=== PATIENT | male | born 1940 | race Caucasian/White ===

== ENCOUNTER 2024-08-22 05:36 | Day surgery (SDC) | payer MEDICARE ==
[2024-08-21 12:12] VITALS: BMI 19.3
[2024-08-22] MEDS ORDERED: LIDOCAINE 1% (10MG/ML) FOR IV START INTRADERMA PRN (06:01)
[2024-08-22 06:24] VITALS: TEMP 98.5
[2024-08-22 06:40] VITALS: BP 143/87; PULSE 98
[2024-08-22] MEDS: IV FLUID CONTINUATION 1,000 ML IV ONE ×2 (06:42)
[2024-08-22] MEDS: LACTATED RINGERS 1,000 ML IV SCH (06:43)
[2024-08-22 07:21] VITALS: RESP 22
--- NOTE | 2024-08-23 22:26 | P.PN ---
Subjective Progress Note Date: 08/23/24 On 08/23/2024, the patient is feeling well. No new complaints. The known case of pulmonary fibrosis has been followed up by Dr. LEEANNE Florian in outpatient basis. He is chronically hypoxic and he has exertional oxygen desaturation the patient will have home O2 arranged for this patient. Otherwise, the patient is cleared for discharge from pulmonary standpoint. GI workup to be done at a later stage. Objective - Vital Signs Vital signs: Vital Signs Temp 98.5 F 08/22/24 06:23 Pulse 98 08/22/24 06:39 Resp 22 08/22/24 07:00 BP 143/87 08/22/24 06:39 Pulse Ox 96 08/22/24 07:00 FiO2 - Exam The patient appeared well nourished and normally developed. Vital signs as documented. Head exam is unremarkable. No scleral icterus or corneal arcus noted. Neck is without jugular venous distension, thyromegaly, or carotid bruits. Carotid upstrokes are brisk bilaterally. Lungs are diminished and has coarse crackles in the lung bases Cardiac exam reveals the PMI to be normally sized and situated. Rhythm is regular. First and second heart sounds normal. No murmurs, rubs or gallops. Abdominal exam reveals normal bowel sounds, no masses, no organomegaly and no aortic enlargement. Extremities are nonedematous and both femoral and pedal pulses are normal. Examination of the skin revealed no evidence of significant rashes, suspicious appearing nevi or other concerning lesions. Neurologically, the patient is awake and alert and the patient does not have any focal neurological deficit. Cranial nerves are essentially intact. 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 He should be able to qualify for home O2. No need for bronchodilators No need for steroids Cough medication to suppress his chronic cough which is essentially due to IPF No contraindication for colonoscopy as long as the patient supplemental oxygen and close monitoring of his respiratory status Outpatient follow-up with his glaze wiper. Consider antifibrotic treatment if the patient is having progressive worsening in his lung function over the years. The patient has been followed up by Dr. LEEANNE Florian and should follow-up with him in the future for further treatment of his pulmonary fibrosis. Will sign off the case, cleared for discharge from pulmonary standpoint
== END 2024-08-22 07:10 | disposition other institution (70) ==
LOC: ORWHC2ENDO 05:36
PROVIDERS: ATTEND Internal Medicine Gastroenterology
DX: R63.4 Abnormal weight loss (principal); R19.4 Change in bowel habit; Z53.9 Procedure and treatment not carried out, unspecified reason

== ENCOUNTER 2024-08-22 07:15 | Observation (INO) | payer MEDICARE ==
--- NOTE | 2024-08-22 07:47 | ED ---
General Adult HPI - General Chief complaint: Shortness of Breath Stated complaint: Wheezing Time Seen by Provider: 08/22/24 07:17 Source: patient, RN/MD, RN notes reviewed, old records reviewed Limitations: no limitations - History of Present Illness Initial comments: 84-year-old male sent down from preop holding with hypoxia. Patient was 77% on room air. Patient denied chest pain. Denied fever. Denied significant cough. States he always is somewhat short of breath. History of COPD. Patient was prepped for a upper GI endoscopy and colonoscopy. Patient himself has no specific complaints. - Related Data Home Medications Medication Instructions Recorded Confirmed Albuterol Nebulized [Ventolin 2.5 mg INHALATION Q6H PRN 08/21/24 08/22/24 Nebulized] Budesonide 0.5 mg INHALATION BID 08/21/24 08/22/24 Montelukast Sodium 10 mg PO HS 08/21/24 08/22/24 Mv-Mn/Om3/Dha/Epa/Fish/Lut/Neo 1 each PO DAILY 08/21/24 08/22/24 [Ocuvite Adult 50 Plus Softgel] Simvastatin 40 mg PO HS 08/21/24 08/22/24 polyethylene glycoL 3350 [Miralax] 17 gm PO DAILY 08/21/24 08/22/24 Allergies Allergy/AdvReac Type Severity Reaction Status Date / Time No Known Allergies Allergy Verified 08/22/24 07:24 Review of Systems ROS Statement: Those systems with pertinent positive or pertinent negative responses have been documented in the HPI. ROS Other: All systems not noted in ROS Statement are negative. Past Medical History Past Medical History: Cancer, Eye Disorder, Hearing Disorder / Deafness, Hyperlipidemia, Pneumonia Additional Past Medical History / Comment(s): Seasonal allergies. Non Hodgkins in remission X2 now. Bleeding behind right retina 3 yrs ago, gets shots every 3 months. Constipation. Hard of hearing. Hx Pneumonia just over a month ago. History of Any Multi-Drug Resistant Organisms: None Reported Additional Past Surgical History / Comment(s): Had stomach surgery as an , left ankle surgery X2, colonoscopy and EGD. Past Anesthesia/Blood Transfusion Reactions: No Reported Reaction Past Psychological History: Anxiety Smoking Status: Former smoker - Past Family History Father Family Medical History: Cancer Additional Family Medical History / Comment(s): Stomach cancer. Mother Family Medical History: Cancer Additional Family Medical History / Comment(s): Stomach cancer. Sister(s) Family Medical History: Cancer, Eye Disorder Additional Family Medical History / Comment(s): Breast cancer, macular degeneration. General Exam Limitations: no limitations General appearance: alert, in no apparent distress Head exam: Present: atraumatic, normocephalic Eye exam: Present: normal appearance, PERRL ENT exam: Present: normal exam Neck exam: Present: normal inspection. Absent: tenderness, meningismus Respiratory exam: Present: wheezes, decreased breath sounds Cardiovascular Exam: Present: regular rate, normal rhythm GI/Abdominal exam: Present: soft. Absent: distended, tenderness, guarding Extremities exam: Present: normal capillary refill. Absent: pedal edema, calf tenderness Neurological exam: Present: alert, oriented X3, CN II-XII intact. Absent: motor sensory deficit Psychiatric exam: Present: normal affect, normal mood Skin exam: Present: warm, dry, intact. Absent: cyanosis, diaphoretic Course Vital Signs 08/22/24 08/22/24 08/22/24 07:20 07:58 08:10 Temperature 98.4 F Pulse Rate 88 84 88 Respiratory 24 Rate Blood Pressure 125/63 O2 Sat by Pulse 99 Oximetry 08/22/24 08/22/24 08:21 09:23 Temperature Pulse Rate 90 81 Respiratory 18 Rate Blood Pressure 116/62 O2 Sat by Pulse 96 Oximetry Medical Decision Making - Medical Decision Making Was pt. sent in by a medical professional or institution (, PA, DOPE HOUSE OPERATOR HELPER, urgent care, hospital, or alf...) When possible be specific @ -No Did you speak to anyone other than the patient for history (EMS, parent, family, police, friend...)? What history was obtained from this source @ -No Did you review nursing and triage notes (agree or disagree)? Why? @ -I reviewed and agree with nursing and triage notes Were old charts reviewed (outside hosp., previous admission, EMS record, old EKG, old radiological studies, urgent care reports/EKG's, alf records)? Report findings @ -No old charts were reviewed Differential Dyspnea: Coronary syndrome, arrhythmia, tamponade, asthma, COPD, pulmonary embolism, pneumonia, pneumothorax, pulmonary effusion, anaphylaxis, diabetic ketoacidosis, flailed chest, pulmonary contusion, diaphragmatic rupture, anemia, neuromuscular, this is not meant to be an all-inclusive list. EKG interpreted by me (3pts min.). @Sinus rhythm with PVC rate of 78, NV interval 157, QRS duration 89, QTc [address] segment elevation. X-rays interpreted by me (1pt min.). @ -[Chest x-ray showing diffuse pulmonary fibrosis CT interpreted by me (1pt min.). @ -None done U/S interpreted by me (1pt. min.). @ -None done What testing was considered but not performed or refused? (CT, X-rays, U/S, labs)? Why? @ -None What meds were considered but not given or refused? Why? @ -None Did you discuss the management of the patient with other professionals (professionals i.e. , PA, DOPE HOUSE OPERATOR HELPER, lab, RT, psych nurse, sexual assault social worker, physicist cryogenics, teacher, operations officer afloat, lining caser)? Give summary @Daniel covering for [facility] Was smoking cessation discussed for >3mins.? @ -No Was critical care preformed (if so, how long)? @ -Yes, 35 minutes Were there social determinants of health that impacted care today? How? (Homelessness, low income, unemployed, alcoholism, drug addiction, transportation, low edu. Level, literacy, decrease access to med. care, fpc, rehab)? @ -No Was there de-escalation of care discussed even if they declined (Discuss DNR or withdrawal of care, Hospice)? DNR status @ -No What co-morbidities impacted this encounter? (DM, HTN, Smoking, COPD, CAD, Cancer, CVA, ARF, Chemo, Hep., AIDS, mental health diagnosis, sleep apnea, morbid obesity)? @ -COPD Was patient admitted / discharged? Hospital course, mention meds given and route, prescriptions, significant lab abnormalities, going to OR and other pertinent info. @ - 84-year-old presents for evaluation of dyspnea and hypoxia history of COPD. Chest x-ray shows pulmonary fibrosis. Laboratory test including CBC, CMP, troponin, BNP is unremarkable. Patient will be admitted for treatment of COPD exacerbation and pulmonary fibrosis. Admitted to [facility] with pulmonology on consult. Undiagnosed new problem with uncertain prognosis? @ -No Drug Therapy requiring intensive monitoring for toxicity (Heparin, Nitro, Insulin, Cardizem)? @ -No Were any procedures done? @ -No Diagnosis/symptom? @COPD, pulmonary fibrosis Acute, or Chronic, or Acute on Chronic? @ -Acute on chronic Uncomplicated (without systemic symptoms) or Complicated (systemic symptoms)? @ -Complicated Side effects of treatment? @ -No Exacerbation, Progression, or Severe Exacerbation? @ -No Poses a threat to life or bodily function? How? (Chest pain, [place], [place], pneumonia, PE, COPD, DKA, ARF, appy, cholecystitis, CVA, Diverticulitis, Homicidal, Suici torie, threat to staff... and all critical care pts) @ -Yes, respiratory failure - Lab Data Result diagrams: 08/22/24 08:02 08/22/24 08:02 Lab Results 08/22/24 08/22/24 08/22/24 Range/Units 08:02 08:02 08:02 WBC 10.41 H (4.50-10.00) 10*3/uL RBC 4.29 L (4.40-5.60) 10*6/uL Hgb 11.1 L (13.0-17.0) g/dL Hct 35.8 L (39.6-50.0) % MCV 83.4 (80.0-97.0) fL MCH 25.9 L (27.0-32.0) pg MCHC 31.0 L (32.0-37.0) g/dL Plt Count 265 (140-440) 10*3/uL MPV 9.2 L (9.5-12.2) fL Immature Gran % (Auto) 0.8 % Neutrophils % 89.7 % Lymphocytes % 2.7 % Monocytes % 6.1 % Eosinophils % 0.3 % Basophils % 0.4 % Immature Gran # 0.08 H (0.00-0.04) 10*3/uL Neutrophils # 9.35 H (1.80-7.70) 10*3/uL Lymphocytes # 0.28 L (0.90-5.00) 10*3/uL Monocytes # 0.63 (0.20-1.00) 10*3/uL Eosinophils # 0.03 L (0.04-0.35) 10*3/uL Basophils # 0.04 (0.00-0.10) 10*3/uL PT 12.2 (10.0-12.5) sec INR 1.1 (<1.2) APTT 28.8 (22.0-30.0) sec Sodium 134 L (137-145) mmol/L Potassium 4.0 (3.5-5.1) mmol/L Chloride 100 (98-107) mmol/L Carbon Dioxide 25 (22-30) mmol/L Anion Gap 9 mmol/L BUN 11 (9-20) mg/dL Creatinine 0.60 L (0.66-1.25) mg/dL Est GFR (CKD-EPI)AfAm >90 (>60 ml/min/1.73 sqM) Est GFR (CKD-EPI)NonAf >90 (>60 ml/min/1.73 sqM) Glucose 89 (74-99) mg/dL Plasma Lactic Acid Bebeto (0.7-2.0) mmol/L Calcium 8.6 (8.4-10.2) mg/dL Magnesium 1.8 (1.6-2.3) mg/dL Total Bilirubin 0.6 (0.2-1.3) mg/dL AST 21 (17-59) U/L ALT 10 (4-49) U/L Alkaline Phosphatase 122 (38-126) U/L Troponin I (0.000-0.034) ng/mL NT-Pro-B Natriuret Pep 464 pg/mL Total Protein 6.0 L (6.3-8.2) g/dL Albumin 3.0 L (3.5-5.0) g/dL 08/22/24 08/22/24 Range/Units 08:02 08:02 WBC (4.50-10.00) 10*3/uL RBC (4.40-5.60) 10*6/uL Hgb (13.0-17.0) g/dL Hct (39.6-50.0) % MCV (80.0-97.0) fL MCH (27.0-32.0) pg MCHC (32.0-37.0) g/dL Plt Count (140-440) 10*3/uL MPV (9.5-12.2) fL Immature Gran % (Auto) % Neutrophils % % Lymphocytes % % Monocytes % % Eosinophils % % Basophils % % Immature Gran # (0.00-0.04) 10*3/uL Neutrophils # (1.80-7.70) 10*3/uL Lymphocytes # (0.90-5.00) 10*3/uL Monocytes # (0.20-1.00) 10*3/uL Eosinophils # (0.04-0.35) 10*3/uL Basophils # (0.00-0.10) 10*3/uL PT (10.0-12.5) sec INR (<1.2) APTT (22.0-30.0) sec Sodium (137-145) mmol/L Potassium (3.5-5.1) mmol/L Chloride (98-107) mmol/L Carbon Dioxide (22-30) mmol/L Anion Gap mmol/L BUN (9-20) mg/dL Creatinine (0.66-1.25) mg/dL Est GFR (CKD-EPI)AfAm (>60 ml/min/1.73 sqM) Est GFR (CKD-EPI)NonAf (>60 ml/min/1.73 sqM) Glucose (74-99) mg/dL Plasma Lactic Acid Bebeto 1.6 (0.7-2.0) mmol/L Calcium (8.4-10.2) mg/dL Magnesium (1.6-2.3) mg/dL Total Bilirubin (0.2-1.3) mg/dL AST (17-59) U/L ALT (4-49) U/L Alkaline Phosphatase (38-126) U/L Troponin I 0.013 (0.000-0.034) ng/mL NT-Pro-B Natriuret Pep pg/mL Total Protein (6.3-8.2) g/dL Albumin (3.5-5.0) g/dL Critical Care Time Critical Care Time: Yes Total Critical Care Time: 35 Disposition Clinical Impression: Acute exacerbation of chronic obstructive pulmonary disease Disposition: ADMITTED IP TO THIS HOSP Condition: Stable Is patient prescribed a controlled substance at d/c from ED?: No Referrals: Tyree Snider MD [Primary Care Provider] - 1-2 days Time of Disposition: 10:19
[2024-08-22] MEDS: SODIUM CHLORIDE 0.9% 500 ML 500 ML IV ONE (07:52)
[2024-08-22] MEDS: IPRATROPIUM 0.5 MG/2.5 ML NEBU INHALATION STA (07:58)
[2024-08-22] MEDS: ALBUTEROL NEBULIZED 2.5 MG/3 ML INHALATION STA (07:58)
[2024-08-22 08:08] LABS: Basophils # (A) 0.04 10*3/uL (0.00-0.10); Basophils % (A) 0.4 %; Eosinophils # (A) 0.03 10*3/uL (0.04-0.35); Eosinophils % (A) 0.3 %; HCT 35.8 % (39.6-50.0); HGB 11.1 g/dL (13.0-17.0); Lymphocytes # (A) 0.28 10*3/uL (0.90-5.00); Lymphocytes % (A) 2.7 %; MCH 25.9 pg (27.0-32.0); MCV 83.4 fL (80.0-97.0); Mean Platelet Volume 9.2 fL (9.5-12.2); Monocytes # (A) 0.63 10*3/uL (0.20-1.00); Monocytes % (A) 6.1 %; Neutrophils # (A) 9.35 10*3/uL (1.80-7.70); Neutrophils % (A) 89.7 %; Platelet Count 265 10*3/uL (140-440); RBC 4.29 10*6/uL (4.40-5.60); RDW 15.9 % (11.5-14.5); WBC 10.41 10*3/uL (4.50-10.00)
[2024-08-22 08:18] LABS: INR 1.1 (<1.2); Partial Thromboplastin Time 28.8 sec (22.0-30.0); Prothrombin Time 12.2 sec (10.0-12.5)
[2024-08-22 08:26] LABS: ALT 10 U/L (4-49); AST 21 U/L (17-59); African American GFR (CKD) >90 (>60 ml/min/1.73 sqM); Alkaline Phosphatase 122 U/L (38-126); Anion Gap 9 mmol/L; Blood Urea Nitrogen 11 mg/dL (9-20); Calcium 8.6 mg/dL (8.4-10.2); Carbon Dioxide 25 mmol/L (22-30); Chloride 100 mmol/L (98-107); Glucose 89 mg/dL (74-99); Magnesium 1.8 mg/dL (1.6-2.3); Non-African American GFR(CKD) >90 (>60 ml/min/1.73 sqM); Sodium 134 mmol/L (137-145); Total Bilirubin 0.6 mg/dL (0.2-1.3)
[2024-08-22 08:35] LABS: NT-Pro-B-Type Natriuretic Pept 464 pg/mL
[2024-08-22] MEDS: methylPREDNISolone SOD SUCCI 125 MG/2 ML VIAL IV STA (09:12)
--- NOTE | 2024-08-22 09:13 | XR ---
EXAMINATION TYPE: XR chest 2V DATE OF EXAM: 08/22/2024 8:56 AM COMPARISON: None available at this location CLINICAL INDICATION: Male, 84 years old with history of difficulty breathing, TECHNIQUE: XR chest 2V view(s) obtained. FINDINGS: The heart size is normal. The pulmonary vasculature is prominent. Diffuse increased lung markings are present. Findings can be compatible with pulmonary edema superimp osed on pulmonary fibrosis. Clinical correlation recommended.. IMPRESSION: 1. Findings suggestive for pulmonary edema superimposed on pulmonary fibrosis. Clinical correlation r ecommended. Follow-up can be performed. [facility], , 08/22/2024 9:11 AM
[2024-08-22] MEDS ORDERED: IPRATROPIUM-ALBUTEROL 3 ML NEB INHALATION PRN (10:16)
[2024-08-22] MEDS ORDERED: NALOXONE 0.4 MG/ML 1 ML VIAL IVP PRN (10:16)
--- NOTE | 2024-08-22 11:26 | P.HPIM ---
History of Present Illness H&P Date: 08/22/24 History of Presenting Illness: Patient is a pleasant 84-year-old male with a past medical history of non- Hodgkin's lymphoma currently in remission, hyperlipidemia, and COPD. Patient was initially scheduled for outpatient EGD and colonoscopy but was found to be hypoxic with SpO2 of 77% on room air, he was placed on oxygen and brought down to the emergency department for evaluation. Upon arrival to the emergency department patient underwent evaluation. Vital signs upon arrival show blood pressure 125/63, heart rate 88, respiratory rate 24, temp 98.4 F, and SpO2 of 99% on 2 L. EKG was completed showing normal sinus rhythm at 78 bpm with occasional PVCs. Chest x-ray showing concerns of pulmonary edema superimposed on pulmonary fibrosis. Labs completed and reviewed. CBC showing leukocytosis with WBC count of 10.41, hemoglobin of 11.1, hematocrit 35.8, MCH of 25.9, and MCHC of 31.0 with MPV of 9.2. Coagulation profile normal findings. BMP showing sodium 134 and blood glucose of 89. Lactic acid normal findings at 1.6. Calcium 8.6. Magnesium 1.8. Liver profile unremarkable. Troponin 0.013 and proBNP of 464. Patient denied feeling short of breath, cough or congestion, chest pain, or any other complaints at this time. Patient does report he has been experiencing progressively worsening shortness of breath over the past year and found simple activities like cutting his grass or taking out the trash to result in worsening shortness of breath and need to take a rest when he previously did not. He denies having any fevers, chills, diaphoresis, dizziness, lightheadedness, chest pain, palpitations, abdominal pain, nausea, vomiting, or experiencing any numbness/tingling/weakness/swelling in his extremities. Patient was admitted under services with consultation to pul monology. Review of systems: Pertinent positives and negatives as discussed in HPI, a complete review of systems was performed and all other systems are negative. Physical exam: Vital signs reviewed and stable. General: Nontoxic, no distress and appears stated age. Derm: Skin warm and dry, normal coloration for ethnicity. Head: Atraumatic, normocephalic and symmetric. Eyes: EOM's intact, no lid lag, and anicteric sclera Mouth: no lip lesions, mucus membranes moist Cardiovascular: regular rate and rhythm with normal S1S2, no murmur, positive posterior tibial pulses bilaterally, and cap refill < 2 seconds. Lungs: Respirations even, regular, and unlabored on supplemental oxygen. Lungs slightly diminished with soft expiratory wheezes, no rhonchi, no rales, no crackles, and no accessory muscle usage. Abdominal: soft, nontender to palpation, no guarding, no appreciable organomegaly Ext: ROM intact. No gross muscle atrophy, no edema, no contractures Neuro: Speech clear, face symmetrical and CN II-XII grossly intact with no noted focal neuro deficits Psych: Alert and oriented to person, place, time, and situation. Appropriate and pleasant affect. Assessment and Plan of Care: Acute hypoxic respiratory failure COPD with concerns of underlying pulmonary fibrosis -Consult to Pulmonology -Oxygenation to be administered and titrated as needed to maintain SPO2 equal to or greater than 92% -Telemetry monitoring. -Monitor pulse-oximetry -Duonebs scheduled 4 times daily and as needed for SOB and/or wheezing -Incentive Spirometry -Steroids: Solu-Medrol 60 mg IVP every 6 hours -Continue Singulair 10 mg nightly and Pulmicort 0.5 mg twice daily. -Consult placed to case management for assistance in setting up home oxygen. Hyperlipidemia Continue atorvastatin 20 mg nightly. History of non-Hodgkin's lymphoma, currently in remission Continue outpatient follow-up with mailroom associate/oncologist. Data and imaging reviewed: As stated above in HPI The patient is admitted with an anticipated less than 2 midnight stay for evaluation of acute hypoxic respiratory failure. CODE STATUS: Full code DVT prophylaxis: Lovenox Discussed with: Patient, RN, and ED physician Anticipated discharge date: Pending clinical course, likely tomorrow pending delivery of home oxygen Anticipated discharge place: Home Patient was seen independently by Nurse Practitioner. This document was prepared using [employer] dictation software. Please allow for errors in engine tester while rare they do occur. Daniel Flores NP rendered care for this patient independently, reviewed the findings and plan as documented in the note above and agree with plan. I did not physically speak with or examine the patient on this date. Past Medical History Past Medical History: Cancer, Eye Disorder, Hearing Disorder / Deafness, Hyperlipidemia, Pneumonia Additional Past Medical History / Comment(s): Seasonal allergies. Non Hodgkins in remission X2 now. Bleeding behind right retina 3 yrs ago, gets shots every 3 months. Constipation. Hard of hearing. Hx Pneumonia just over a month ago. History of Any Multi-Drug Resistant Organisms: None Reported Additional Past Surgical History / Comment(s): Had stomach surgery as an , left ankle surgery X2, colonoscopy and EGD. Past Anesthesia/Blood Transfusion Reactions: No Reported Reaction Past Psychological History: Anxiety Smoking Status: Former smoker - Past Family History Father Family Medical History: Cancer Additional Family Medical History / Comment(s): Stomach cancer. Mother Family Medical History: Cancer Additional Family Medical History / Comment(s): Stomach cancer. Sister(s) Family Medical History: Cancer, Eye Disorder Additional Family Medical History / Comment(s): Breast cancer, macular degeneration. Medications and Allergies Home Medications Medication Instructions Recorded Confirmed Type Albuterol Nebulized [Ventolin 2.5 mg INHALATION RT-Q6H PRN 08/21/24 08/22/24 History Nebulized] Budesonide 0.5 mg INHALATION RT-BID 08/21/24 08/22/24 History Montelukast Sodium 10 mg PO HS 08/21/24 08/22/24 History Simvastatin 40 mg PO HS 08/21/24 08/22/24 History Fexofenadine HCl [Lauren Allergy] 180 mg PO DAILY 08/22/24 08/22/24 History Mv-Min/FA/Vit K/Lutein/Zeaxant 1 cap PO DAILY 08/22/24 08/22/24 History [Preservision Areds 2 Plus Mv] Allergies Allergy/AdvReac Type Severity Reaction Status Date / Time No Known Allergies Allergy Verified 08/22/24 11:29 Physical Exam Vitals: Vital Signs Temp Pulse Resp BP Pulse Ox 08/22/24 11:19 98.2 F 80 18 113/55 97 08/22/24 09:23 81 18 116/62 96 08/22/24 08:21 90 08/22/24 08:10 88 08/22/24 07:58 84 08/22/24 07:23 24 08/22/24 07:20 98.4 F 88 24 125/63 99 Intake and Output 08/21/24 08/22/24 08/22/24 22:59 06:59 14:59 Other: Weight 67.358 kg Results CBC & Chem 7: 08/22/24 08:02 08/22/24 08:02 Labs: Abnormal Lab Results - Last 24 Hours (Table) 08/22/24 08/22/24 Range/Units 08:02 08:02 WBC 10.41 H (4.50-10.00) 10*3/uL RBC 4.29 L (4.40-5.60) 10*6/uL Hgb 11.1 L (13.0-17.0) g/dL Hct 35.8 L (39.6-50.0) % MCH 25.9 L (27.0-32.0) pg MCHC 31.0 L (32.0-37.0) g/dL MPV 9.2 L (9.5-12.2) fL Immature Gran # 0.08 H (0.00-0.04) 10*3/uL Neutrophils # 9.35 H (1.80-7.70) 10*3/uL Lymphocytes # 0.28 L (0.90-5.00) 10*3/uL Eosinophils # 0.03 L (0.04-0.35) 10*3/uL Sodium 134 L (137-145) mmol/L Creatinine 0.60 L (0.66-1.25) mg/dL Total Protein 6.0 L (6.3-8.2) g/dL Albumin 3.0 L (3.5-5.0) g/dL
[2024-08-22] MEDS: IPRATROPIUM-ALBUTEROL 3 ML NEB INHALATION SCH (11:42)
[2024-08-22] MEDS: methylPREDNISolone SOD SUCCI 125 MG/2 ML VIAL IV SCH (13:26)
--- NOTE | 2024-08-22 15:29 | P.CNPUL ---
History of Present Illness Consult date: 08/22/24 Reason for consult: dyspnea History of present illness: This is an 84-year-old male patient with known history of pulmonary fibrosis who has been followed by Dr. LEEANNE Florian on outpatient basis. The patient has been able to maintain his oxygenation above 90% at rest on room air oxygen. However, he has exertional hypoxemia as the patient drops his pulse ox down to mid 70s and low 80s upon limited amount of activity. He has a chronic cough. His chest x-ray is consistent with pulmonary fibrosis, likely IPF and the patient has chronic fibrotic changes and crackles in the lung bases bilaterally. The patient was brought into the hospital to undergo a colonoscopy and EGD. The procedure was canceled by the anesthesiologist as the patient was found to be hypoxic. Based on that, he was admitted. He is currently awake and alert on room air oxygen. No chest pain. No pleurisy. No hemoptysis. No aspiration.Me there is too many factors he is we just The chest tube in with drop the PEEP so really it is hard to say you now give him sometimes over Hemodynamically stable. Blood work was done and the patient has a hemoglobin of 11.1, the white cell count of 10.4 and a platelet count of 365. Normal coagulation profile. Normal LFTs. Normal renal function. proBNP level is 464. He has previous history of Hodgkin's lymphoma the patient has received chemotherapy back in 2002 and 2007 and the patient is currently in remission. The patient was in the [employer] Review of Systems Constitutional: Reports fatigue Eyes: denies as per HPI, denies blurred vision, denies bulging eye, denies decreased vision, denies diplopia, denies discharge, denies dry eye, denies i rritation, denies itching, denies pain, denies photophobia, denies loss of peripheral vision, denies loss of vision, denies tunnel vision/blind spots Ears: deny: decreased hearing, ear discharge, earache, tinnitus Ears, nose, mouth and throat: Reports as per HPI Breasts: absent: as per HPI, gynecomastia Cardiovascular: Reports as per HPI Respiratory: Reports cough, Reports dyspnea Gastrointestinal: Reports as per HPI Genitourinary: Reports as per HPI Musculoskeletal: Reports as per HPI Musculoskeletal: absent: ankle pain, ankle stiffness, ankle swelling, as per HPI, elbow pain, elbow stiffness, elbow swelling, foot pain, foot stiffness, foot swelling, hand pain, hand stiffness, hand swelling, hip pain, hip stiffness, hip swelling, knee pain, knee stiffness, knee swelling, shoulder pain, shoulder stiffness, shoulder swelling, wrist pain, wrist stiffness, wrist swelling Integumentary: Reports as per HPI Neurological: Reports as per HPI Psychiatric: Reports as per HPI Endocrine: Reports as per HPI Hematologic/Lymphatic: Reports as per HPI Allergic/Immunologic: Reports as per HPI Past Medical History Past Medical History: Cancer (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 Non Hodgkins in remission X2 now. Bleeding behind right retina 3 yrs ago, gets shots every 3 months. Constipation. Hard of hearing. Hx Pneumonia just over a month ago. History of Any Multi-Drug Resistant Organisms: None Reported Additional Past Surgical History / Comment(s): Had stomach surgery as an , left ankle surgery X2, colonoscopy and EGD. Past Anesthesia/Blood Transfusion Reactions: No Reported Reaction Past Psychological History: Anxiety Smoking Status: Former smoker - Past Family History Father Family Medical History: Cancer Additional Family Medical History / Comment(s): Stomach cancer. Mother Family Medical History: Cancer Additional Family Medical History / Comment(s): Stomach cancer. Sister(s) Family Medical History: Cancer, Eye Disorder Additional Family Medical History / Comment(s): Breast cancer, macular degeneration. Medications and Allergies Home Medications Medication Instructions Recorded Confirmed Type Albuterol Nebulized [Ventolin 2.5 mg INHALATION RT-Q6H PRN 08/21/24 08/22/24 History Nebulized] Budesonide 0.5 mg INHALATION RT-BID 08/21/24 08/22/24 History Montelukast Sodium 10 mg PO HS 08/21/24 08/22/24 History Simvastatin 40 mg PO HS 08/21/24 08/22/24 History Fexofenadine HCl [Lauren Allergy] 180 mg PO DAILY 08/22/24 08/22/24 History Mv-Min/FA/Vit K/Lutein/Zeaxant 1 cap PO DAILY 08/22/24 08/22/24 History [Preservision Areds 2 Plus Mv] Allergies Allergy/AdvReac Type Severity Reaction Status Date / Time No Known Allergies Allergy Verified 08/22/24 11:29 Physical Exam Vitals: Vital Signs Temp Pulse Resp BP Pulse Ox 08/22/24 13:22 97.8 F 78 18 120/64 95 08/22/24 11:50 74 08/22/24 11:42 77 08/22/24 11:19 98.2 F 80 18 113/55 97 08/22/24 09:23 81 18 116/62 96 08/22/24 08:21 90 08/22/24 08:10 88 08/22/24 07:58 84 08/22/24 07:23 24 08/22/24 07:20 98.4 F 88 24 125/63 99 Intake and Output 08/21/24 08/22/24 08/22/24 22:59 06:59 14:59 Other: Weight 67.358 kg The patient appeared well nourished and normally developed. Vital signs as documented. Head exam is unremarkable. No scleral icterus or corneal arcus noted. Neck is without jugular venous distension, thyromegaly, or carotid bruits. Carotid upstrokes are brisk bilaterally. Lungs are diminished and has coarse crackles in the lung bases Cardiac exam reveals the PMI to be normally sized and situated. Rhythm is regular. First and second heart sounds normal. No murmurs, rubs or gallops. Abdominal exam reveals normal bowel sounds, no masses, no organomegaly and no aortic enlargement. Extremities are nonedematous and both femoral and pedal pulses are normal. Examination of the skin revealed no evidence of significant rashes, suspicious appearing nevi or other concerning lesions. Neurologically, the patient is awake and alert and the patient does not have any focal neurological deficit. Cranial nerves are essentially intact. 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 He should be able to qualify for home O2. Please perform a oxygen qualification test, and a 6-minute walk if needed I qualify the patient for oxygen. No need for bronchodilators No need for steroids Cough medication to suppress his chronic cough which is essentially due to IPF No contraindication for colonoscopy as long as the patient supplemental oxygen and close monitoring of his respiratory status Outpatient follow-up with his respiratory support technician. Consider antifibrotic treatment if the patient is having progressive worsening in his lung function over the years. The patient has been followed up by Dr. LEEANNE Florian and should follow-up with him in the future for further treatment of his pulmonary fibrosis.
[2024-08-22 19:43] VITALS: RESP 16
[2024-08-22] MEDS ORDERED: BUDESONIDE 0.5 MG/2 ML NEBU INHALATION SCH (20:00)
[2024-08-22] MEDS: MONTELUKAST 10 MG TAB PO SCH (21:50)
[2024-08-22] MEDS: ATORVASTATIN 20 MG TAB PO SCH (21:50)
[2024-08-23 07:32] VITALS: BP 129/70; TEMP 97.9
[2024-08-23] MEDS: LORATADINE 10 MG TAB PO SCH (08:28)
[2024-08-23] MEDS: ENOXAPARIN 40 MG/0.4 ML SYRINGE SQ SCH (08:28)
[2024-08-23] MEDS: VIT A,C & E-LUTEIN-MINERALS 1 EACH TAB PO SCH (08:29)
--- NOTE | 2024-08-23 14:18 | P.CONS ---
History of Present Illness - Reason for Consult Consult date: 08/23/24 Scheduled EGD and colonoscopy Requesting physician: Daniel Flores - Chief Complaint Hypoxia - History of Present Illness This a pleasant 84-year-old male who was scheduled yesterday for outpatient EGD and colonoscopy however procedure was canceled by anesthesia secondary to hypoxia. Patient was having EGD and colonoscopy as part of her workup for weight loss. Past medical history includes non-Hodgkin's lymphoma in remission, hyperlipidemia and pulmonary fibrosis. Apparently patient has poor dentition and does not have new dentures, also has coughing after eating. Patient is currently sitting up in bed appears comfortable denies any shortness of breath or chest pain. Apparently he will be discharged with oxygen. He currently denies any abdominal pain nausea or vomiting. He is sitting up and eating lunch without any difficulty. Review of Systems REVIEW OF SYSTEMS: CARDIOPULMONARY: No chest pain or shortness of breath. Gastrointestinal: No abdominal pain. No nausea or vomiting. No hematemesis, coffee-ground emesis. No rectal bleeding, or melena. GENITOURINARY: No dysuria or hematuria. MUSCULOSKELETAL: Reports normal range of motion., Joint pain. SKIN: No rashes. No jaundice. ENDOCRINE: No chills, fevers. No excessive weight gain or loss. No polydipsia or polyuria. PSYCHIATRIC: Unremarkable. NEUROLOGY: No change in mental status. Denies dizziness, headache. ENT: Vision unremarkable. Poor dentition. CONSTITUTIONAL: About a 20 pound weight loss over the last 1 year duration. No fever, chills, night sweats. Past Medical History Past Medical History: Cancer, Eye Disorder, Hearing Disorder / Deafness, Hyperlipidemia Additional Past Medical History / Comment(s): Seasonal allergies. Non Hodgkins in remission X2 now. Bleeding behind right retina 3 yrs ago, gets shots every 3 months. Constipation. Hard of hearing. Hx Pneumonia just over a month ago. History of Any Multi-Drug Resistant Organisms: None Reported Additional Past Surgical History / Comment(s): Had stomach surgery as an infant, left ankle surgery X2, colonoscopy and EGD. Past Anesthesia/Blood Transfusion Reactions: No Reported Reaction Past Psychological History: Anxiety Smoking Status: Former smoker Past Alcohol Use History: None Reported Additional Past Alcohol Use History / Comment(s): Quit smoking over 40 yrs ago. Past Drug Use History: None Reported - Past Family History Father Family Medical History: Cancer Additional Family Medical History / Comment(s): Stomach cancer. Mother Family Medical History: Cancer Additional Family Medical History / Comment(s): Stomach cancer. Sister(s) Family Medical History: Cancer, Eye Disorder Additional Family Medical History / Comment(s): Breast cancer, macular degeneration. Medications and Allergies Home Medications Medication Instructions Recorded Confirmed Type Albuterol Nebulized [Ventolin 2.5 mg INHALATION RT-Q6H PRN 08/21/24 08/22/24 History Nebulized] Budesonide 0.5 mg INHALATION RT-BID 08/21/24 08/22/24 History Montelukast Sodium 10 mg PO HS 08/21/24 08/22/24 History Simvastatin 40 mg PO HS 08/21/24 08/22/24 History Fexofenadine HCl [Lauren Allergy] 180 mg PO DAILY 08/22/24 08/22/24 History Mv-Min/FA/Vit K/Lutein/Zeaxant 1 cap PO DAILY 08/22/24 08/22/24 History [Preservision Areds 2 Plus Mv] Allergies Allergy/AdvReac Type Severity Reaction Status Date / Time No Known Allergies Allergy Verified 08/22/24 11:29 Physical Exam Vitals: Vital Signs Temp Pulse Pulse Pulse Resp BP BP 08/23/24 10:45 67 08/23/24 10:13 76 08/23/24 10:02 72 08/23/24 07:00 97.9 F 54 L 16 129/70 08/23/24 02:29 97.4 F L 54 L 16 134/73 08/22/24 19:21 97.5 F L 68 16 148/74 08/22/24 18:44 70 08/22/24 18:32 72 08/22/24 14:39 97.4 F L 72 17 130/56 Pulse Ox Pulse Ox 08/23/24 10:45 87 L 08/23/24 10:13 08/23/24 10:02 08/23/24 07:00 96 08/23/24 02:29 97 08/22/24 19:21 96 08/22/24 18:44 08/22/24 18:32 08/22/24 14:39 95 Intake and Output 08/22/24 08/23/24 08/23/24 22:59 06:59 14:59 Other: # Voids 1 2 Weight 67.358 kg General appearance: The patient is alert, oriented, appears in no acute d istress. HET: Head is normocephalic and atraumatic. Conjunctiva pink. Sclera anicteric. Neck: Supple without lymphadenopathy. Trachea midline. Heart: Regular. Lungs: Equal expansion, normal respiratory effort. Abdomen: Soft, nontender, nondistended. Skin: No rashes. No jaundice. Extremities: Normal skin color and turgor. No pedal edema. Neurological: No focal deficits. Alert and oriented x3. Results CBC & Chem 7: 08/22/24 08:02 08/22/24 08:02 Assessment and Plan (1) Weight loss Narrative/Plan: 84-year-old male scheduled for outpatient EGD and colonoscopy as part of a workup for weight loss. Procedure was canceled by anesthesia secondary to hypoxia which patient has been seen by pulmonology and reports he is stable and this is a chronic stable hypoxemia secondary to pulmonary fibrosis. Patient is offered to have EGD and colonoscopy during this hospitalization however he would like to wait. There is no acute need for EGD colonoscopy at this time. Will plan for outpatient follow-up in 4 weeks to reschedule. Current Visit: Yes Status: Acute Code(s): R63.4 - ABNORMAL WEIGHT LOSS SNOMED Code(s): 45081759 (2) Pulmonary fibrosis Current Visit: Yes Status: Acute Code(s): J84.10 - PULMONARY FIBROSIS, UNSPECIFIED SNOMED Code(s): 31928516 (3) Chronic hypoxemic respiratory failure Current Visit: Yes Status: Acute Code(s): J96.11 - CHRONIC RESPIRATORY FAILU RE WITH HYPOXIA SNOMED Code(s): 006022341 (4) Poor dentition Current Visit: Yes Status: Acute Code(s): K08.9 - DISORDER OF TEETH AND SUPPORTING STRUCTURES, UNSPECIFIED SNOMED Code(s): 508833508 Plan: 1. Continue symptomatic and supportive care 2. Diet as tolerated 3. No plans for EGD or colonoscopy. Patient prefers to reschedule as an outpatient. 4. Continue rest of medical management per primary medical team Thank you for this consultation, patient is cleared from gastroenterology for discharge. We will sign off at this time. Dr. Juan Pablo Terrell I agree with the dictator's note, documented as a scribe by Naomi Stout.
--- NOTE | 2024-08-23 14:50 | P.DS ---
Providers Date of admission: 08/22/24 10:17 Expected date of discharge: 08/23/24 Attending physician: Bill Keith Consults: 08/22/24 10:16 Consult Physician Routine Consulting Provider: Martina Ruckre Consult Reason/Comments: COPD, PULMONARY FIBROSIS Do you want consulting provider notified?: Yes 08/23/24 14:07 Consult Physician Routine Consulting Provider: Haylie Terrell Consult Reason/Comments: endoscopy Do you want consulting provider notified?: Already Contacted Primary care physician: Tyree Snider Hospital Course: Discharge Diagnosis: Acute hypoxic respiratory failure COPD with pulmonary fibrosis Hyperlipidemia History of non-Hodgkin's lymphoma, currently in remission Hospital Course: Patient is a pleasant 84-year-old male with a past medical history of non- Hodgkin's lymphoma currently in remission, hyperlipidemia, and COPD. Patient was initially scheduled for outpatient EGD and colonoscopy but was found to be hypoxic with SpO2 of 77% on room air, he was placed on oxygen and brought down to the emergency department for evaluation. Upon arrival to the emergency department patient underwent evaluation. Vital signs upon arrival show blood pressure 125/63, heart rate 88, respiratory rate 24, temp 98.4 F, and SpO2 of 99% on 2 L. EKG was completed showing normal sinus rhythm at 78 bpm with occasional PVCs. Chest x-ray showing concerns of pulmonary edema superimposed on pulmonary fibrosis. Labs completed and reviewed. CBC showing leukocytosis with WBC count of 10.41, hemoglobin of 11.1, hematocrit 35.8, MCH of 25.9, and MCHC of 31.0 with MPV of 9.2. Coagulation profile normal findings. BMP showing sodium 134 and blood glucose of 89. Lactic acid normal findings at 1.6. Calci um 8.6. Magnesium 1.8. Liver profile unremarkable. Troponin 0.013 and proBNP of 464. Patient denied feeling short of breath, cough or congestion, chest pain, or any other complaints at this time. Patient does report he has been experiencing progressively worsening shortness of breath over the past year and found simple activities like cutting his grass or taking out the trash to result in worsening shortness of breath and need to take a rest when he previously did not. He denies having any fevers, chills, diaphoresis, dizziness, lightheadedness, chest pain, palpitations, abdominal pain, nausea, vomiting, or experiencing any numbness/tingling/weakness/swelling in his extremities. Patient was admitted under services with consultation to pulmonology. Home oxygen evaluation was completed, patient desaturating down to 87% on room air at rest. Arrangements were made for delivery of home oxygen. Patient continues to deny having any complaints since admission. He is being discharged home on continuous home O2 and to follow-up outpatient with his PCP and primary linseed oil press tender. Physical exam: Vital signs reviewed and stable. General: Nontoxic, no distress and appears stated age. Derm: Skin warm and dry, normal coloration for ethnicity. Head: Atraumatic, normocephalic and symmetric. Eyes: EOM's intact, no lid lag, and anicteric sclera Mouth: no lip lesions, mucus membranes moist Cardiovascular: regular rate and rhythm with normal S1S2, no murmur, positive posterior tibial pulses bilaterally, and cap refill < 2 seconds. Lungs: Respirations even, regular, and unlabored on supplemental oxygen. Lungs slightly diminished with soft expiratory wheezes, no rhonchi, no rales, no crackles, and no accessory muscle usage. Abdominal: soft, nontender to palpation, no guarding, no appreciable organomegaly Ext: ROM intact. No gross muscle atrophy, no edema, no contractures Neuro: Speech clear, face symmetrical and CN II-XII grossly intact with no noted focal neuro deficits Psych: Alert and oriented to person, place, time, and situation. Appropriate and pleasant affect. A total of 31 minutes of time were spent preparing this complex discharge summary. Pt was discharged on 08/23/2024 at 2:48 PM Patient was seen independently by Nurse Practitioner. This document was prepared using [employer] dictation software. Please allow for errors in washer engineer helper while rare they do occur. Daniel Flores NP rendered care for this patient independently, reviewed the findings and plan as documented in the note above. I did not physically speak with or examine the patient on this date. Patient Condition at Discharge: Stable Plan - Discharge Summary Discharge Rx Participant: Yes New Discharge Prescriptions: Continue Budesonide 0.5 mg INHALATION RT-BID Simvastatin 40 mg PO HS Montelukast Sodium 10 mg PO HS Albuterol Nebulized [Ventolin Nebulized] 2.5 mg INHALATION RT-Q6H PRN PRN Reason: Shortness Of Breath Mv-Min/FA/Vit K/Lutein/Zeaxant [Preservision Areds 2 Plus Mv] 1 cap PO DAILY Fexofenadine HCl [Lauren Allergy] 180 mg PO DAILY Discharge Medication List Albuterol Nebulized [Ventolin Nebulized] 2.5 mg INHALATION RT-Q6H PRN 08/21/24 [History] Budesonide 0.5 mg INHALATION RT-BID 08/21/24 [History] Montelukast Sodium 10 mg PO HS 08/21/24 [History] Simvastatin 40 mg PO HS 08/21/24 [History] Fexofenadine HCl [Lauren Allergy] 180 mg PO DAILY 08/22/24 [History] Mv-Min/FA/Vit K/Lutein/Zeaxant [Preservision Areds 2 Plus Mv] 1 cap PO DAILY 08/22/24 [History] Follow up Appointment(s)/Referral(s): Tyree Snider MD [Primary Care Provider] - 1-2 days Massimo Florian MD [STAFF PHYSICIAN] - 1 Week Haylie Terrell MD [STAFF PHYSICIAN] - 1 Week Patient Instructions/Handouts: Pulmonary Fibrosis (DC), Using Oxygen at Home (DC) Activity/Diet/Wound Care/Special Instructions: Activity: As tolerated. Take breaks as needed. Diet: Heart healthy and carb consistent diet. Avoid salts, or foods with hidden salts such as canned or boxed foods and frozen dinners. Special Instructions: Take all of your medications as directed and remember to keep all of your doctor's appointments and follow-up as needed. Thank you for allowing us to participate in your care, it was truly a pleasure having you for our patient!!! Discharge Disposition: HOME SELF-CARE
[2024-08-23 15:40] VITALS: PULSE 76
--- NOTE | 2024-08-25 12:17 | P.PN ---
Subjective Progress Note Date: 08/23/24 On 08/23/2024, the patient is feeling well. No new complaints. The known case of pulmonary fibrosis has been followed up by Dr. LEEANNE Florian in outpatient basis. He is chronically hypoxic and he has exertional oxygen desaturation the patient will have home O2 arranged for this patient. Otherwise, the patient is cleared for discharge from pulmonary standpoint. GI workup to be done at a later stage. Objective - Vital Signs Vital signs: Vital Signs Temp 98.5 F 08/22/24 06:23 Pulse 98 08/22/24 06:39 Resp 22 08/22/24 07:00 BP 143/87 08/22/24 06:39 Pulse Ox 96 08/22/24 07:00 FiO2 - Exam The patient appeared well nourished and normally developed. Vital signs as documented. Head exam is unremarkable. No scleral icterus or corneal arcus noted. Neck is without jugular venous distension, thyromegaly, or carotid bruits. Carotid upstrokes are brisk bilaterally. Lungs are diminished and has coarse crackles in the lung bases Cardiac exam reveals the PMI to be normally sized and situated. Rhythm is regular. First and second heart sounds normal. No murmurs, rubs or gallops. Abdominal exam reveals normal bowel sounds, no masses, no organomegaly and no aortic enlargement. Extremities are nonedematous and both femoral and pedal pulses are normal. Examination of the skin revealed no evidence of significant rashes, suspicious appearing nevi or other concerning lesions. Neurologically, the patient is awake and alert and the patient does not have any focal neurological deficit. Cranial nerves are essentially intact. 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 He should be able to qualify for home O2. No need for bronchodilators No need for steroids Cough medication to suppress his chronic cough which is essentially due to IPF No contraindication for colonoscopy as long as the patient supplemental oxygen and close monitoring of his respiratory status Outpatient follow-up with his vascular surgery physician. Consider antifibrotic treatment if the patient is having progressive worsening in his lung function over the years. The patient has been followed up by Dr. LEEANNE Florian and should follow-up with him in the future for further treatment of his pulmonary fibrosis. Will sign off the case, cleared for discharge from pulmonary standpoint
== END 2024-08-23 16:16 | disposition home or self-care (01) ==
LOC: EC 07:15 → 6NMEDSUR 10:17
PROVIDERS: ADMIT Student in an Organized Health Care Education/Training Program; ATTEND Student in an Organized Health Care Education/Training Program
DX: J44.1 Chronic obstructive pulmonary disease with (acute) exacerbation (principal); J96.21 Acute and chronic respiratory failure with hypoxia; J84.10 Pulmonary fibrosis, unspecified; R05.3 Chronic cough; R19.4 Change in bowel habit; J30.2 Other seasonal allergic rhinitis; D72.829 Elevated white blood cell count, unspecified; H91.90 Unspecified hearing loss, unspecified ear; C85.9A Non-Hodgkin lymphoma, unspecified, in remission; E78.5 Hyperlipidemia, unspecified; Z79.899 Other long term (current) drug therapy; Z79.51 Long term (current) use of inhaled steroids; Z87.891 Personal history of nicotine dependence; Z87.01 Personal history of pneumonia (recurrent)
CPT/HCPCS: 96376; 96372; 96374; 99291; 36415; 94640 ×4; 94644; 93005; 83880; 80053; 83605; 83735; 84484; 85025; 85610; 85730; 71046; G0378 ×2; J1650; J2919

== ENCOUNTER 2024-09-15 11:52 | Day surgery (SDC) | payer MEDICARE ==
[2024-09-14 13:14] VITALS: BMI 18.8
[~2024-09-15 11:52] MED LIST: LIDOCAINE 1% (10MG/ML) FOR IV START INTRADERMA PRN
[2024-09-15 14:08] VITALS: TEMP 97
[2024-09-15] MEDS: IV FLUID CONTINUATION 1,000 ML IV ONE (14:08)
[2024-09-15] MEDS: LACTATED RINGERS 1,000 ML IV SCH (14:09)
[2024-09-15] MEDS ORDERED: PROPOFOL 10 MG/ML 20 ML VIAL IV ONE (15:21)
[2024-09-15] MEDS ORDERED: LIDOCAINE 1% INJ 10MG/ML (20 ML MDV) ONE (15:21)
--- NOTE | 2024-09-15 15:37 | P.PCN ---
Date of Procedure: 09/15/24 Procedure(s) Performed: BRIEF HISTORY: Patient is a 84-year-old, pleasant, white male scheduled for an upper endoscopy as a part evaluation for surveillance of 40 pounds in the last 1 year duration.. PROCEDURE PERFORMED: Esophagogastroduodenoscopy with biopsy. PREOPERATIVE DIAGNOSIS: Progressive weight loss. IV sedation per anesthesia. PROCEDURE: After informed consent was obtained, the patient was brought into the endoscopy unit. IV sedation was administered by Anesthesia under continuous monitoring. Initially the Olympus GIF-140 video endoscope was inserted into the mouth. Esophagus intubated without any difficulty. It was gradually advanced into the stomach and duodenum and carefully examined. The bulb and the second part of the duodenum appeared normal. Biopsies were done from the duodenum rule out celiac disease. The scope at this time was withdrawn to the stomach, adequately insufflated with air, and upon careful examination, mucosa of the antrum, and mild gastritis and biopsies were done from this area. Mucosa of the body, cardia and the fundus appeared normal. The scope was then withdrawn into the esophagus. The GE junction was located at 39 cm from the incisors. The esophagus appeared normal. There were no erosions or ulcerations seen and the patient tolerated the procedure well. IMPRESSION: 1. Mild gastritis. 2. No evidence of esophagitis or peptic ulcer disease. RECOMMENDATIONS: The findings of this examination were discussed with the patient as well as the family. He was advised to follow-up with the biopsy results.. Follow-up in the office in 2 weeks.
[2024-09-15 15:47] VITALS: PULSE 73; RESP 16
[2024-09-15 15:57] VITALS: BP 121/65
== END 2024-09-15 16:39 | disposition home or self-care (01) ==
LOC: ORWHC2ENDO 11:52
PROVIDERS: ATTEND Internal Medicine Gastroenterology
DX: K29.50 Unspecified chronic gastritis without bleeding (principal); C85.90 Non-Hodgkin lymphoma, unspecified, unspecified site; J44.9 Chronic obstructive pulmonary disease, unspecified; E78.5 Hyperlipidemia, unspecified; F41.9 Anxiety disorder, unspecified; H91.90 Unspecified hearing loss, unspecified ear; Z79.51 Long term (current) use of inhaled steroids; Z79.899 Other long term (current) drug therapy
CPT/HCPCS: 88305; 43239; J2003; J2704